=== PATIENT | male | born 2000 | race American Indian/Alaskan Native ===

== ENCOUNTER 2022-01-12 11:30 | Emergency (ER) | payer OTHER ==
[2022-01-12] MEDS ORDERED: SODIUM CHLORIDE 0.9% 1000 ML 1,000 ML IV ONE (12:34)
[2022-01-12] MEDS ORDERED: KETOROLAC 30 MG/1 ML INJ IV ONE (12:34)
[2022-01-12] MEDS ORDERED: ONDANSETRON 4 MG/2 ML INJ IV ONE (12:39)
[2022-01-12 13:01] LABS: Hematocrit 46.4 % (35.5-45.6); Hemoglobin 15.1 gm/dl (11.8-15.2); Mean Corpuscular HGB Conc 33 % (32-34); Mean Corpuscular Volume 92 fl (84-94); Platelet Count 241 K/mm3 (140-440); Red Blood Count 5.05 M/mm3 (3.65-5.03); Red Cell Distribution Width 13.3 % (13.2-15.2)
--- NOTE | 2022-01-12 13:16 | Emergency Department Report ---
ED Headache HPI - General Chief Complaint: Pain General Stated Complaint: LT FACIAL PAIN Time Seen by Provider: 01/12/22 12:34 Source: patient Exam Limitations: no limitations - History of Present Illness Initial Comments: Patient is a 21-year-old male that comes to the ER with left-sided headache. He states that he has a history of migraines diagnosed at the age of 14 or 15. He used to take medication but he stopped taking it a couple years ago. He has no new trauma. He has no photophobia or nausea and vomiting. He took [id number] Motrin with no relief. He has had prior CTs and imaging that have all been normal. Patient is ambulatory to the ER and neuro intact Quality: moderate Head Injury Location: other Recent Head Trauma: occasional headaches Modifying Factors: worse with: cold therapy, exposure to light, immobilization, medication, movement, rest, other Associated Symptoms: denies symptoms Allergies/Adverse Reactions: Allergies No Known Allergies Allergy (Verified 01/12/22 12:22) Home Medications: Ambulatory Orders Butalb/Acetaminophen/Caffeine [Fioricet 50-300-40 mg CAP] 1 cap PO Q8HR PRN #12 cap 01/12/22 ED Review of Systems ROS: Stated complaint: LT FACIAL PAIN Other details as noted in HPI Comment: All other systems reviewed and negative ED Past Medical Hx - Past Medical History Previous Medical History?: Yes Additional medical history: MIGRAINE - Surgical History Past Surgical History?: No - Family History Family history: no significant - Social History Smoking Status: Current Every Day Smoker Substance Use Type: Alcohol, Marijuana - Medications Home Medications: Home Medications Medication Instructions Recorded Confirmed Last Taken Type Butalb/Acetaminophen/Caffeine 1 cap PO Q8HR PRN #12 cap 01/12/22 Unknown Rx [Fioricet 50-300-40 mg CAP] ED Physical Exam - General Limitations: No Limitations General appearance: alert, in no apparent distress - Head Head exam: Present: atraumatic, normocephalic - Eye Eye exam: Present: normal appearance - ENT ENT exam: Present: mucous membranes moist - Neck Neck exam: Present: normal inspection - Respiratory Respiratory exam: Present: normal lung sounds bilaterally. Absent: respiratory distress - Cardiovascular Cardiovascular Exam: Present: regular rate, normal rhythm. Absent: systolic murmur, diastolic murmur, rubs, gallop - GI/Abdominal GI/Abdominal exam: Present: soft, normal bowel sounds - Rectal Rectal exam: Present: deferred - Extremities Exam Extremities exam: Present: normal inspection - Back Exam Back exam: Present: normal inspection - Neurological Exam Neurological exam: Present: alert, oriented X3 - Psychiatric Psychiatric exam: Present: normal affect, normal mood - Skin Skin exam: Present: warm, dry, intact, normal color. Absent: rash ED Course Vital Signs 01/12/22 12:18 Temperature 98.5 F Pulse Rate 79 Respiratory 18 Rate Blood Pressure 149/92 O2 Sat by Pulse 100 Oximetry ED Medical Decision Making - Lab Data Result diagrams: 01/12/22 12:43 01/12/22 12:43 - Medical Decision Making Labs 01/12/22 01/12/22 12:43 12:43 WBC 5.3 RBC 5.05 H Hgb 15.1 Hct 46.4 H MCV 92 MCH 30 MCHC 33 RDW 13.3 Plt Count 241 Sodium 139 Potassium 3.4 L Chloride 101.9 Carbon Dioxide 24 Anion Gap 17 BUN 13 Creatinine 1.0 Estimated GFR > 60 BUN/Creatinine Ratio 13 Glucose 119 H Calcium 9.6 Total Bilirubin 0.50 AST 17 ALT 11 Alkaline Phosphatase 85 Total Protein 7.0 Albumin 4.6 Albumin/Globulin Ratio 1.9 Vital Signs 01/12/22 12:18 Temperature 98.5 F Pulse Rate 79 Respiratory 18 Rate Blood Pressure 149/92 O2 Sat by Pulse 100 Oximetry Medicated with normal saline, Toradol, Zofran. Patient did get some relief. I have medicated him with p.o. meds prior to discharge. Labs are all noted to be normal with the exception of a low potassium. Patient has not had any nausea or vomiting. His K has been supplemented. Patient taking p.o. without difficulty On discharge exam patient reports some relief from his pain. Patient being discharged home with discharge plan of care including diet, activity, medications and follow-up. Patient verbalizes understanding of discharge plan of care - Differential Diagnosis Migraine Critical care attestation.: If time is entered above; I have spent that time in minutes in the direct care of this critically ill patient, excluding procedure time. ED Disposition Clinical Impression: Hypokalemia Migraine Qualifiers: Migraine type: other Disposition: 01 HOME / SELF CARE / HOMELESS Is pt being admited?: No Does the pt Need Aspirin: No Condition: Stable Instructions: Recurrent Migraine Headache, [id number] Additional Instructions: Stay well-hydrated with water. Medication as ordered today for your migraines You may use Motrin with this medication Follow-up with the neurologist for definitive care of your migraines. Prescriptions: Butalb/Acetaminophen/Caffeine [Fioricet 50-300-40 mg CAP] 1 cap PO Q8HR PRN #12 cap PRN Reason: Headache Referrals: KATHLEEN ZHONG MD [Staff Physician] - 3-5 Days Time of Disposition: 13:19
[2022-01-12] MEDS ORDERED: BUTALB/ACETAMINOPHEN/CAFFEINE TAB PO ONE (13:19)
[2022-01-12 13:33] LABS: Alanine Aminotransferase 11 units/L (7-56); Albumin 4.6 g/dL (3.9-5); BUN/Creatinine Ratio 13; Blood Urea Nitrogen 13 mg/dL (9-20); Calcium 9.6 mg/dL (8.4-10.2); Hemolysis Index 7
[2022-01-12] MEDS ORDERED: POTASSIUM CHLORIDE ER 20 MEQ TAB PO ONE (13:34)
[2022-01-12] MEDS ORDERED: HYDROcodone/ACETAMINOPHEN 5-325 MG TAB PO ONE (13:37)
[2022-01-12 15:25] VITALS: BP 126/80
== END 2022-01-12 14:41 | disposition home or self-care (01) ==
LOC: ED 11:30
DX: E87.6 Hypokalemia (principal); G43.909 Migraine, unspecified, not intractable, without status migrainosus; F17.200 Nicotine dependence, unspecified, uncomplicated; F10.20 Alcohol dependence, uncomplicated; F12.90 Cannabis use, unspecified, uncomplicated
CPT/HCPCS: 36415; 80053; 85027; 96361; 96374; 96375; 99283; J1885; J2405; J7030; Q0162